=== PATIENT | male | born 1985 | race Caucasian/White ===

== ENCOUNTER 2018-12-24 11:00 | Emergency (ER) | payer BC, MEDICAID ==
[~2018-12-24] VITALS: Ht 182.9 cm; Wt 75.0 kg
[2018-12-24] MEDS ORDERED: IBUPROFEN 600MG TABLET PO ONE (12:00)
[2018-12-24] MEDS ORDERED: BACITRACIN ZINC OINT UDPKT TOP ONE (12:00)
[2018-12-24 12:09] VITALS: BP 140/92
== END 2018-12-24 12:10 | disposition home or self-care (01) ==
LOC: ER 11:00
DX: M54.5 Low back pain (principal); M25.512 Pain in left shoulder; S80.811A Abrasion, right lower leg, initial encounter; R03.0 Elevated blood-pressure reading, without diagnosis of hypertension; V29.49XA Motorcycle driver injured in collision with other motor vehicles in traffic accident, initial encounter; Y93.89 Activity, other specified; Y92.410 Unspecified street and highway as the place of occurrence of the external cause
CPT/HCPCS: 99283